=== PATIENT | female | born 1965 | race Caucasian/White ===

== ENCOUNTER 2020-03-24 14:01 | Emergency (ER) | payer OTHER ==
[2020-03-24 16:06] LABS: HEMOGLOBIN 13.6 gm/dl (12.3-15.3); RED BLOOD COUNT 4.59 M/UL (4.00-5.10); WHITE BLOOD COUNT 11.6 K/UL (4.5-11.0)
[2020-03-24 16:21] LABS: BUN/CREATININE RATIO 22 (0-10)
[2020-03-24] MEDS ORDERED: HYDROCODON-ACE1 EAC4 PO (16:57)
== END 2020-03-24 19:05 | disposition home or self-care (01) ==
LOC: ER1 14:01
PROVIDERS: Physician Assistant
DX: R10.12 Left upper quadrant pain (principal); R10.32 Left lower quadrant pain; R11.2 Nausea with vomiting, unspecified; F17.210 Nicotine dependence, cigarettes, uncomplicated; Z87.19 Personal history of other diseases of the digestive system; Z90.49 Acquired absence of other specified parts of digestive tract; Z90.710 Acquired absence of both cervix and uterus; Z98.890 Other specified postprocedural states; Z88.0 Allergy status to penicillin; Z88.5 Allergy status to narcotic agent
CPT/HCPCS: 36415; 80053; 81001; 83690; 85025; 96374; 96375; 99284; J2270; J2405; J7030; Q9967

== ENCOUNTER → 2020-11-23 | Outpatient (CLI) | payer OTHER ==
[~2020-11-23] MED LIST: HYDROCODON-ACE1 EAC4 PO
== END ==
LOC: KOH-I 14:06
DX: M25.571 Pain in right ankle and joints of right foot (principal); M79.671 Pain in right foot; R93.6 Abnormal findings on diagnostic imaging of limbs
CPT/HCPCS: 73610; 73630